=== PATIENT | female | born 1985 | race Caucasian/White ===

== ENCOUNTER 2018-07-14 08:49 | Emergency (ER) | payer OTHER ==
[~2018-07-14] VITALS: Ht 152.4 cm; Wt 104.3 kg
[2018-07-14 09:04] VITALS: BP 118/79
--- NOTE | 2018-07-14 09:07 | NUR ---
PT AMBULATES TO BED 9
--- NOTE | 2018-07-14 09:10 | NUR ---
PATIENT PRESENTS TO ED WITH THROAT PAIN . PT STATES . DENIES N/V/D; SKIN IS PINK/WARM/DRY; AAOX4 WITH EVEN AND STEADY GAIT; LUNGS CLEAR BL; HR EVEN AND REGULAR; PT DENIES ANY FEVER, CP, SOB, OR COUGH AT THIS TIME; PATIENT STATES PAIN OF 9/10 AT THIS TIME; VSS; PATIENT POSITIONED FOR COMFORT; HOB ELEVATED; BEDRAILS UP X2; BED DOWN. ER MD MADE AWARE OF PT STATUS.
[2018-07-14] MEDS ORDERED: DEXAMETHASONE 10 MG/ML VIAL IM ONE (09:20)
[2018-07-14] MEDS ORDERED: CLINDAMYCIN 600 MG/4 ML VIAL IM ONE (09:20)
--- NOTE | 2018-07-14 09:30 | NUR ---
DECADRON NOT IN PYXIS--PHARMACY NOTIFIED
--- NOTE | 2018-07-14 10:02 | NUR ---
Patient discharged with v/s stable. Written and verbal after care instructions given and explained. Patient alert, oriented and verbalized understanding of instructions. Ambulatory with steady gait. All questions addressed prior to discharge. ID band removed. Patient advised to follow up with PMD. Rx of CLINDAMYCIN/ PREDNISONE given. Patient educated on indication of medication including possible reaction and side effects. Opportunity to ask questions provided and answered.
[2018-07-14 10:03] VITALS: BP 123/84
== END 2018-07-14 10:02 | disposition home or self-care (01) ==
LOC: MED 08:49
DX: J03.90 Acute tonsillitis, unspecified (principal); J45.909 Unspecified asthma, uncomplicated
CPT/HCPCS: 96372; 99284; J1100; J3490

== ENCOUNTER 2019-01-26 22:28 | Emergency (ER) | payer OTHER ==
[~2019-01-26] VITALS: Ht 152.4 cm; Wt 112.6 kg
[2019-01-26 22:46] VITALS: BP 108/78
--- NOTE | 2019-01-26 22:52 | NUR ---
PT AMBULATED TO THE RESTROOM, SENT TO LOBBY, PT VSS
--- NOTE | 2019-01-27 01:15 | NUR ---
TO ED 08 WITH STEADY GAIT.
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
--- NOTE | 2019-01-27 03:01 | NUR ---
PT SLEEPING AT THIS TIME. NO NEW CONCERNS OR COMPLAINTS.
[2019-01-27] MEDS ORDERED: KETOROLAC 60 MG/2 ML VIAL IM ONE (03:10)
[2019-01-27 03:41] VITALS: BP 110/83
== END 2019-01-27 03:41 | disposition home or self-care (01) ==
LOC: MED 22:28
DX: S60.221A Contusion of right hand, initial encounter (principal); J45.909 Unspecified asthma, uncomplicated; W22.03XA Walked into furniture, initial encounter; Y93.89 Activity, other specified; Y92.89 Other specified places as the place of occurrence of the external cause; Y99.8 Other external cause status
CPT/HCPCS: 73130; 81002; 81025; 96372; 99283; J1885